=== PATIENT | female | born 1995 | race Asian ===

== ENCOUNTER 2021-01-19 16:18 | Emergency (ER) | payer OTHER ==
[~2021-01-19] VITALS: Ht 144.8 cm; Wt 52.3 kg
[2021-01-19 16:18] VITALS: BP 118/69
[2021-01-19] MEDS ORDERED: HYDR25OI TOP (16:59)
[2021-01-19] MEDS ORDERED: CEPH500C PO (16:59)
== END 2021-01-19 17:06 | disposition home or self-care (01) ==
LOC: M ED 16:18
DX: L03.317 Cellulitis of buttock (principal)

== ENCOUNTER 2022-06-17 15:44 | Inpatient (IN) | payer OTHER ==
[~2022-06-17] VITALS: Ht 144.8 cm; Wt 63.9 kg
[~2022-06-17 15:44] MED LIST: CEPH500C PO; HYDR25OI TOP
[2022-06-17] MEDS ORDERED: TRANEXAMIC ACID INJection 1,000 MG in NS 100 ML IV PRN (16:45)
[2022-06-17] MEDS ORDERED: METHYLERGONOVINE MALEATE 0.2 MG/ML VIAL (J2210) IM PRN (16:45)
[2022-06-17] MEDS ORDERED: OXYTOCIN DRIP 30 UNITS in IV 1 EA IV PRN ×4 (16:45)
[2022-06-17] MEDS ORDERED: LIDOCAINE 1% MDV 20ML VIAL INFIL PRN (16:45)
[2022-06-17] MEDS ORDERED: OXYTOCIN INJ 10 UNITS/ML VIAL (J2590) IV PRN (16:45)
[2022-06-17 17:12] VITALS: BP 119/75
[2022-06-17] MEDS ORDERED: PRENTAB9 PO (17:17)
[2022-06-17] MEDS ORDERED: HOME MED LIST COMPLETE! XX SCH (17:20)
[2022-06-17 17:38] LABS: HEMATOCRIT 35.4 % (36.0-47.0); MEAN CORPUSCULAR HGB CONC 33.9 g/dl (32.0-36.5); MEAN CORPUSCULAR VOLUME 85.5 fl (80.0-96.0); PLATELET COUNT, AUTOMATED 281 10^3/uL (150-450); RED BLOOD COUNT 4.14 10^6/uL (4.00-5.40); WHITE BLOOD COUNT 14.1 10^3/uL (4.0-10.0)
[2022-06-17 18:55] VITALS: BP 145/75
[2022-06-17] MEDS ORDERED: BICITRA 30ML SOLN UDC PO ONE (20:50)
[2022-06-17] MEDS ORDERED: ceFAZolin SOD 2 GM in IV 1 EA IV ONE (20:50)
[2022-06-17] MEDS ORDERED: BUPIVACAINE HCL 0.25% 10ML VIAL SC ONE (20:50)
[2022-06-17] MEDS ORDERED: AZITHROMYCIN INJ 500 MG, VIAL MATE ADAPTER 1 EACH in NS 250 ML IV ONE (20:50)
[2022-06-17] MEDS ORDERED: ACETAMINOPHEN 650 MG SUPP PR ONE (20:55)
[2022-06-17 21:26] VITALS: BP 124/61
[2022-06-17] MEDS ORDERED: ONDANSETRON 4MG 2ML VIAL As Ordered ONE (21:47)
[2022-06-17] MEDS ORDERED: KETOROLAC 60MG 2ML VIAL As Ordered ONE (21:47)
[2022-06-17] MEDS ORDERED: MORPHINE PRES-FREE INJ 10 MG/10 ML VIAL As Ordered ONE (21:47)
[2022-06-17] MEDS ORDERED: OXYTOCIN 30 UNITS IN 0.9% NaCl 500ML IV BAG (J2590) As Ordered ONE ×2 (22:06→23:15)
[2022-06-17] MEDS ORDERED: OXYTOCIN INJ 10 UNITS/ML VIAL (J2590) As Ordered ONE (22:06)
[2022-06-17] MEDS ORDERED: fentaNYL 100 MCG/2 ML INJECTION As Ordered ONE (22:19)
[2022-06-17 22:36] LABS: CORD GAS ABE A -2.1; CORD GAS ABE V -1.7; CORD GAS HCO3 A 24.4 MEQ/L; CORD GAS O2 SAT A 28.9 %; CORD GAS O2 SAT V 39.9 %; CORD GAS PCO2 A 48.6 mmHg; CORD GAS PCO2 V 44.4 mmHg; CORD GAS PH A 7.319 UNITS; CORD GAS PH V 7.351 UNITS; CORD GAS PO2 A 15.3 mmHg; CORD GAS PO2 V 17.3 mmHg; CORD GAS SBC A 21.2 MEQ/L; CORD GAS SBC V 21.7 MEQ/L; CORD GAS TCO2 A 25.9 MEQ/L; CORD GAS TCO2 V 25.4 MEQ/L
[2022-06-17] MEDS ORDERED: OXYTOCIN INJ 10 UNITS/ML VIAL (J2590) IV ONE (23:10)
[2022-06-17] MEDS ORDERED: PERCOCET 5MG/325MG TAB PO PRN ×2 (23:10→23:15)
[2022-06-17] MEDS ORDERED: OXYTOCIN DRIP 30 UNITS in IV 1 EA IV ONE (23:10)
[2022-06-17] MEDS ORDERED: ACETAMINOPHEN TAB 650MG DOSE (2X325MG) PO PRN (23:10)
[2022-06-17] MEDS ORDERED: METHYLERGONOVINE MALEATE 0.2 MG TAB PO PRN (23:10)
[2022-06-17] MEDS ORDERED: OXYTOCIN DRIP 30 UNITS in IV 1 EA IV SCH (23:10)
[2022-06-17] MEDS ORDERED: ANUSOL HC CREAM 30GM TOP PRN (23:10)
[2022-06-17] MEDS ORDERED: ACETAMINOPHEN 500 MG TAB PO PRN (23:10)
[2022-06-17] MEDS ORDERED: SIMETHICONE 80MG CHEW TAB PO PRN (23:10)
[2022-06-17] MEDS ORDERED: MOM 30ML SUSPENSION UDC PO PRN (23:10)
[2022-06-17] MEDS ORDERED: DOCUSATE SODIUM 100MG CAPSULE PO PRN (23:10)
[2022-06-17] MEDS ORDERED: RHOGAM 300 MCG (1500 IU) INJ (J2790) IM SCH (23:10)
[2022-06-17] MEDS: SLF 3 ML SYR IV SCH (23:15)
[2022-06-17] MEDS ORDERED: METOCLOPRAMIDE INJ 10MG/2ML VIAL (J2765 PER 1) IV PRN (23:15)
[2022-06-17] MEDS ORDERED: LR 1,000 ML IV SCH (23:15)
[2022-06-17] MEDS ORDERED: **NOTE PATIENT COMMENT** MISC XX SCH (23:15)
[2022-06-17] MEDS ORDERED: diphenhydrAMINE 50MG/ML VIAL (J1200) IV PRN (23:15)
[2022-06-17] MEDS ORDERED: NALOXONE INJ 0.4MG/1ML VIAL (J2310 PER 1MG) IV PRN ×2 (23:15)
[2022-06-17] MEDS ORDERED: fentaNYL 100 MCG/2 ML INJECTION IV PRN (23:15)
[2022-06-17] MEDS ORDERED: ONDANSETRON 4MG 2ML VIAL IV PRN (23:15)
[2022-06-17] MEDS: LR 1,000 ML IV SCH (23:19)
[2022-06-18 01:50] VITALS: BP 102/59
[2022-06-18] MEDS: KETOROLAC 30 MG/ML 1ML VIAL IV SCH ×3 (03:31→16:18)
[2022-06-18 06:00] VITALS: BP 94/58
[2022-06-18 06:33] LABS: HEMATOCRIT 30.1 % (36.0-47.0); HEMOGLOBIN 10.3 g/dl (12.0-15.5); MEAN CORPUSCULAR HEMOGLOBIN 29.3 pg (27.0-33.0); MEAN CORPUSCULAR HGB CONC 34.2 g/dl (32.0-36.5); MEAN CORPUSCULAR VOLUME 85.5 fl (80.0-96.0); PLATELET COUNT, AUTOMATED 236 10^3/uL (150-450); RED BLOOD COUNT 3.52 10^6/uL (4.00-5.40); WHITE BLOOD COUNT 19.8 10^3/uL (4.0-10.0)
[2022-06-18] MEDS: LR 1,000 ML IV SCH ×2 (06:50→15:10)
[2022-06-18] MEDS: SLF 3 ML SYR IV SCH ×2 (07:15→15:15)
[2022-06-18] MEDS: PRENATAL VITAMINS CHEWABLE TABLET PO SCH (09:46)
[2022-06-18 09:47] VITALS: BP 102/56
[2022-06-18 14:00] VITALS: BP 94/50
[2022-06-18] MEDS: PERCOCET 5MG/325MG TAB PO PRN (15:07)
[2022-06-18 18:12] VITALS: BP 99/54
[2022-06-18 22:00] VITALS: BP 90/50
[2022-06-19] MEDS ORDERED: IBUPROFEN 600MG TAB PO PRN
[2022-06-19 02:00] VITALS: BP 107/61
[2022-06-19 06:00] VITALS: BP 118/65
[2022-06-19] MEDS ORDERED: COLA100C5 PO (06:07)
[2022-06-19] MEDS ORDERED: ACET1TAB55 PO (06:07)
[2022-06-19] MEDS ORDERED: IBUP-1022 PO (06:07)
[2022-06-19] MEDS ORDERED: PERCOCET PO (06:07)
[2022-06-19] MEDS ORDERED: MEASLES,MUMPS,RUBELLA VACCINE INJ (MMR-II) (90707) SC.IMMUN ONE (09:00)
[2022-06-19 09:53] VITALS: BP 114/61
[2022-06-19] MEDS: PERCOCET 5MG/325MG TAB PO PRN (10:15)
[2022-06-19] MEDS: PRENATAL VITAMINS CHEWABLE TABLET PO SCH (10:16)
== END 2022-06-19 13:40 | disposition home or self-care (01) | DRG 772 ==
LOC: M LDO 15:44 → M LDI 16:13 → M OBS 06-18 00:30
PROVIDERS: ADMIT Obstetrics & Gynecology; ATTEND Obstetrics & Gynecology
PROC: 10D00Z1 Extraction of Products of Conception, Low, Open Approach (ICD-10-PCS; principal; 2022-06-17 20:00)
DX: O32.1XX0 Maternal care for breech presentation, not applicable or unspecified (principal); O41.03X0 Oligohydramnios, third trimester, not applicable or unspecified; Z3A.37 37 weeks gestation of pregnancy; Z37.0 Single live birth